=== PATIENT | male | born 1995 | race Two or more races ===

== ENCOUNTER 2018-06-30 10:08 | Inpatient (IN) | payer OTHER ==
[~2018-06-30] VITALS: Ht 170.2 cm; Wt 73.2 kg
[2018-06-30 16:35] LABS: BASOPHILS % (AUTO) 0.6 % (0.0-2.0); EOSINOPHILS % (AUTO) 2.1 % (0.0-3.0); HEMATOCRIT 38.2 % (42.0-52.0); HEMOGLOBIN 13.4 G/DL (14.2-18.0); LYMPHOCYTES % (AUTO) 46.8 % (20.0-45.0); MEAN CORPUSCULAR VOLUME 88 FL (80-99); MONOCYTES % (AUTO) 6.6 % (1.0-10.0); NEUTROPHILS % (AUTO) 43.9 % (45.0-75.0); PLATELET COUNT 290 K/UL (150-450); RED BLOOD COUNT 4.35 M/UL (4.70-6.10); RED CELL DISTRIBUTION WIDTH 11.3 % (11.6-14.8); WHITE BLOOD COUNT 6.3 K/UL (4.8-10.8)
--- NOTE | 2018-06-30 19:45 | NUR ---
NURSE NOTES: Pt lying in bed w/bed in lowest position and call light within reach. Pt A&Ox4 and in no apparent distress. Pt aware of diet orders and has no questions or concerns at this time. Will continue to monitor.
--- NOTE | 2018-06-30 19:53 | NUR ---
HAND-OFF: Report given to Jigar HULL.
--- NOTE | 2018-06-30 20:01 | NUR ---
NURSE NOTES: Pt received as a direct admit, verbalized understanding of diet orders. Able to verbalize past medical history. Stable condition no concerns verbalized.
--- NOTE | 2018-06-30 20:04 | History & Physical ---
History and Physical History & Physicial Full H&P dictated. 22 yo male electively admitted for participation in [employer] clinical trial [id number] S: Pt feels well, no complaints today O: VSS Afebrile HEENT: nc/at Lungs: clear Cor: reg, no murmurs Abd: soft, NT, BS+ Ext: no c/c/e Skin: no rash A: 1) Well controlled HIV infection 2) Participation in [id number] P: 1) Infuse IP in AM 2) Per protocol 3) continue sole outpt med: Symtuza, one tab daily. Jeff Valentin MD June 30, 2018 20:04
--- NOTE | 2018-07-01 02:45 | History and Physical Report ---
DATE OF ADMISSION: 06/30/2018 CHIEF COMPLAINT: The patient is electively admitted for participation in [employer] Clinical Trial, [id number]. HISTORY OF PRESENT ILLNESS: The patient is a 22-year-old man, diagnosed several years ago with HIV infection. He was started on Symtuza in 2017 and was continued on it since. His viral load is undetectable and he feels well. He is electively admitted for participation in this drug study. PAST MEDICAL HISTORY: He had the usual childhood diseases. He has not had any adult medical illnesses. He has had no opportunistic infections or malignancies. MEDICATIONS: Symtuza one tablet daily. ALLERGIES: None. FAMILY HISTORY: Noncontributory. 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 He was born in [place]. He is a single menon male. He states that he has not used illicit substances in at least 2 weeks and his drug screens as an outpatient have been negative. The patient smokes occasionally, but has not smoked cigarettes in the past several weeks. REVIEW OF SYSTEMS: No fever. No chills. No cough. No headache. No shortness of breath. No chest pain. No nausea, vomiting, or diarrhea. No dysuria or hematuria. PHYSICAL EXAMINATION: VITAL SIGNS: Included temperature of 97.8, heart rate of 85, blood pressure was 99/61, and his respiratory rate was 14. HEENT: Normocephalic, atraumatic. Pupils equal, round, and reactive. Oropharynx was without thrush or leukoplakia. NECK: Supple. There is no cervical or axillary adenopathy. LUNGS: Clear to auscultation. HEART: Had regular rhythm without murmurs or gallops. ABDOMEN: Soft and nontender. No hepatosplenomegaly. EXTREMITIES: Without cyanosis, clubbing, or edema. NEUROLOGIC: Grossly nonfocal for motor or sensory deficits. SKIN: Had no rashes. IMPRESSION: 1. Participation in [employer] Clinical Trial, [id number]. 2. HIV infection, well controlled. DISCUSSION: The patient is a very pleasant 22-year-old man, who is electively admitted for participation in a clinical trial of an investigational agent, [id number]. Our plan will be to manage him per protocol, anticipate dosing in the morning with close observation in the remainder of his hospital stay. The patient was afforded an opportunity again to ask questions. The patient verbalized being satisfied with his participation and wishes to continue. PLAN: Manage per protocol. Jeff Valentin M.D. DR: LIAM JOB#: [id number] CC: Jeff Valentin M.D.; [facility] [facility], [address]; [place] [address]; Fax#: [phone] [facility]
--- NOTE | 2018-07-01 07:40 | NUR ---
HAND-OFF: Report given to Malcom Mathew RN.
--- NOTE | 2018-07-01 07:45 | NUR ---
NURSE NOTES: Patient sitting in bed awake. No complain of pain or distress at this time. Skin intact and dry. Bed lowest position. Call light within reach. Will continue to monitor.
[2018-07-01 08:00] VITALS: BP 102/59
[2018-07-01] MEDS ORDERED: [UNRECOGNIZED DRUG - REMARK] IV ONE (08:15)
[2018-07-01 12:00] VITALS: BP 108/60
[2018-07-01] MEDS: SYMTUZA ORAL SCH (12:33)
--- NOTE | 2018-07-01 14:09 | NUR ---
[facility] S/W FRIDA ..SHE WILL HANDLE THIS ADMISSION.. P- [phone] F- [phone].....REVIEW/CLINICAL
--- NOTE | 2018-07-01 14:53 | NUR ---
CASE MANAGEMENT:REVIEW 22 YR OLD MALE HERE FOR PARTICIPATION IN [employer] CLINICAL TRIAL [id number]
--- NOTE | 2018-07-01 15:56 | General Progress Note ---
Progress Note Progress Note S: Pt doing well, tolerated infusion of IP this morning w/o observed AEs. No new complaints O: VSS. Afebrile HEENT: nc/at Neck: supple Lungs: clear a/p Cor: reg Abd: soft, NT Ext: no c/c/e Skin: no rash Labs Test 06/30/18 13:45 White Blood Count 6.3 K/UL (4.8-10.8) Red Blood Count 4.35 M/UL (4.70-6.10) Hemoglobin 13.4 G/DL (14.2-18.0) Hematocrit 38.2 % (42.0-52.0) Mean Corpuscular Volume 88 FL (80-99) Mean Corpuscular Hemoglobin 30.8 PG (27.0-31.0) Mean Corpuscular Hemoglobin Concent 35.1 G/DL (32.0-36.0) Red Cell Distribution Width 11.3 % (11.6-14.8) Platelet Count 290 K/UL (150-450) Mean Platelet Volume 5.1 FL (6.5-10.1) Neutrophils (%) (Auto) 43.9 % (45.0-75.0) Lymphocytes (%) (Auto) 46.8 % (20.0-45.0) Monocytes (%) (Auto) 6.6 % (1.0-10.0) Eosinophils (%) (Auto) 2.1 % (0.0-3.0) Basophils (%) (Auto) 0.6 % (0.0-2.0) A: 1) HIV, well controlled 2) Participation in [id number] clinical trial P: 1) monitor per protocol 2) will check local CBC in Jeff Aguila MD July 01, 2018 15:56
[2018-07-01 16:00] VITALS: BP 116/66
--- NOTE | 2018-07-01 19:30 | NUR ---
HAND-OFF: Report given to Henry HULL. Patient instable condition.
--- NOTE | 2018-07-01 19:31 | NUR ---
NURSE NOTES: Report taken from DELLA العراقي. Patient is awake and in bed, very fatigued, A&Ox4. Here for clinical trial. No signs of distress on room air. No complaints of pain. IV site c/d/i and patent, no fluids, patients infusion was done 07/01. bed in lowest position, call light within reach. VS only to be taken at 0225 per MD order.
--- NOTE | 2018-07-02 07:27 | NUR ---
HAND-OFF: Report given to DELLA Gray. Patient is asleep, VS stable. .
--- NOTE | 2018-07-02 08:01 | NUR ---
NURSE NOTES: Pt in bed no concerns at this time, partner is at bedside. Here for clinical trials under the care of Dr Valentin
[2018-07-02] MEDS: SYMTUZA ORAL SCH (09:23)
[2018-07-02 09:56] LABS: BASOPHILS % (AUTO) 0.5 % (0.0-2.0); EOSINOPHILS % (AUTO) 2.7 % (0.0-3.0); HEMATOCRIT 37.4 % (42.0-52.0); HEMOGLOBIN 12.9 G/DL (14.2-18.0); LYMPHOCYTES % (AUTO) 42.3 % (20.0-45.0); MEAN CORPUSCULAR VOLUME 93 FL (80-99); MONOCYTES % (AUTO) 7.9 % (1.0-10.0); NEUTROPHILS % (AUTO) 46.6 % (45.0-75.0); PLATELET COUNT 267 K/UL (150-450); RED BLOOD COUNT 4.03 M/UL (4.70-6.10); RED CELL DISTRIBUTION WIDTH 11.8 % (11.6-14.8); WHITE BLOOD COUNT 5.1 K/UL (4.8-10.8)
--- NOTE | 2018-07-02 11:52 | General Progress Note ---
Progress Note Progress Note S: Pt states he feels well, no new complaints O: VSS Afebrile HEENT: nc/at Neck: supple Lungs: clear a/ Cor: reg rate, rhythm. No murmurs, gallops Abd; soft, NT. No HSM Ext: no c/c/e Neuro: non-focal Skin: no rashes Labs Test 06/30/18 13:45 07/02/18 08:00 White Blood Count 6.3 K/UL (4.8-10.8) 5.1 K/UL (4.8-10.8) Red Blood Count 4.35 M/UL (4.70-6.10) 4.03 M/UL (4.70-6.10) Hemoglobin 13.4 G/DL (14.2-18.0) 12.9 G/DL (14.2-18.0) Hematocrit 38.2 % (42.0-52.0) 37.4 % (42.0-52.0) Mean Corpuscular Volume 88 FL (80-99) 93 FL (80-99) Mean Corpuscular Hemoglobin 30.8 PG (27.0-31.0) 32.0 PG (27.0-31.0) Mean Corpuscular Hemoglobin Concent 35.1 G/DL (32.0-36.0) 34.4 G/DL (32.0-36.0) Red Cell Distribution Width 11.3 % (11.6-14.8) 11.8 % (11.6-14.8) Platelet Count 290 K/UL (150-450) 267 K/UL (150-450) Mean Platelet Volume 5.1 FL (6.5-10.1) 5.7 FL (6.5-10.1) Neutrophils (%) (Auto) 43.9 % (45.0-75.0) 46.6 % (45.0-75.0) Lymphocytes (%) (Auto) 46.8 % (20.0-45.0) 42.3 % (20.0-45.0) Monocytes (%) (Auto) 6.6 % (1.0-10.0) 7.9 % (1.0-10.0) Eosinophils (%) (Auto) 2.1 % (0.0-3.0) 2.7 % (0.0-3.0) Basophils (%) (Auto) 0.6 % (0.0-2.0) 0.5 % (0.0-2.0) A: 1) HIV infection, well-controlled 2) Participation in [id number] clinical trial Pt doing well, no AEs observed as yet. P: 1) manage per protocol 2) anticipate discharge in AM if stable, with f/u in office next week. Jeff Valentin MD July 02, 2018 11:52
--- NOTE | 2018-07-02 16:00 | NUR ---
NURSE NOTES: Pt has no concerns frequent room rounds made. Able to verbalize known needs. Dr. Valentin here earlier in shift and seen pt. Current plan of care will be followed
--- NOTE | 2018-07-02 19:23 | NUR ---
NURSE NOTES: Dr Valentin called with report from Reyna that pt had developed a rash to forearms. Prosthetic Dentist entered room with oncoming nurse. Rash is visible, yet no elevations, denies itching. Dr Valentin gave instructions for area to be monitored closely, no further orders given. Per Dr. Valentin will be in early in the AM, On coming nurse Henry made aware of instructions. No further v/s need to be taken per Reyna.
--- NOTE | 2018-07-02 19:29 | NUR ---
HAND-OFF: Report given to Hudson HULL.
--- NOTE | 2018-07-02 19:31 | NUR ---
NURSE NOTES: Report taken from DELLA Gray. patient is awake and in bed, A&Ox4. here for clinical trial with Dr. Valentin. No signs of distress on room air. No complaints of pain. Patient recently noticed a red rash on bilateral forearms. Dr. Valentin was contacted and just would like to monitor area. IV site removed per trial instructions. Bed in lowest position, call light within reach.
[2018-07-02 20:00] VITALS: BP 110/61
[2018-07-02] MEDS ORDERED: Patient's Own Med ORAL (22:39)
--- NOTE | 2018-07-03 07:40 | NUR ---
NURSE NOTES: Report received from Henry HULL, rounds made. Patient sleeping in right lateral position, in bed. Arousable to name. No distress on RA, denies pain, SOB, or NV. No IV access. Plans for discharge home today. Call light in reach, bed in lowest position, will continue to monitor.
--- NOTE | 2018-07-03 07:55 | NUR ---
HAND-OFF: Report given to DELLA Gonzalez. Patient is awake and in bed. D/C instructions endorsed to RN to give to patient.
[2018-07-03] MEDS ORDERED: Pneumococcal Vaccine 25mcg/0.5ml IM ONE (08:30)
[2018-07-03 08:49] LABS: BASOPHILS % (AUTO) 0.5 % (0.0-2.0); EOSINOPHILS % (AUTO) 2.4 % (0.0-3.0); LYMPHOCYTES % (AUTO) 38.5 % (20.0-45.0); MEAN CORPUSCULAR VOLUME 91 FL (80-99); MONOCYTES % (AUTO) 8.1 % (1.0-10.0); NEUTROPHILS % (AUTO) 50.5 % (45.0-75.0); PLATELET COUNT 293 K/UL (150-450); RED BLOOD COUNT 4.16 M/UL (4.70-6.10); WHITE BLOOD COUNT 5.8 K/UL (4.8-10.8)
[2018-07-03] MEDS: SYMTUZA ORAL SCH (08:55)
--- NOTE | 2018-07-03 09:00 | NUR ---
NURSE NOTES: Discharge instructions reviewed with patient, verbalized understanding. Home medication picked up from pharmacy. All belongings, discharge instructions and home medication given to patient. Patient ambulated down to lobby with RN. Patient lives very close to the hospital, will walk home. Discharged home at 0900 in stable condition.
--- NOTE | 2018-07-05 03:45 | Discharge Summary ---
DATE OF ADMISSION: 06/30/2018 DATE OF DISCHARGE: 07/03/2018 DISCHARGE DIAGNOSES: 1. Participation in [employer] clinical trial [id number]. 2. Well-controlled human immunodeficiency virus infection. 3. Transient rash. HISTORY OF PRESENT ILLNESS AND HOSPITAL COURSE: The patient is a 22-year-old man, who was admitted electively on 06/30/2018 for participation in the above clinical trial. The patient received an infusion in the morning of the second hospital day and tolerated well. However, about 24 hours later, he developed transient maculopapular rash in his forearms, which were mildly pruritic, but which did not require any symptomologic treatment. The rash spontaneously resolved and was gone at the time of discharge. The patient tolerated the infusion well otherwise. He is discharged in good condition to home. He will be followed up in my office next week. This was the first of 5 anticipated biweekly infusions. DISCHARGE MEDICATIONS: Symtuza 1 tablet daily. Jeff Valentin M.D. DR: LIAM JOB#: [id number] CC: Jeff Valentin M.D.; [address] [place] [address], [address]; [place] [address]; Fax#: [phone]
== END 2018-07-03 09:00 | disposition home or self-care (01) | DRG 951 ==
LOC: 3E 15:56
DX: Z00.6 Encounter for examination for normal comparison and control in clinical research program (principal); Z21 Asymptomatic human immunodeficiency virus [HIV] infection status; R21 Rash and other nonspecific skin eruption
CPT/HCPCS: 36415; 85025; 90732

== ENCOUNTER 2018-07-28 10:15 | Inpatient (IN) | payer OTHER ==
[~2018-07-28] VITALS: Ht 167.6 cm; Wt 79.0 kg
[~2018-07-28 10:15] MED LIST: Patient's Own Med ORAL
[2018-07-28 15:12] LABS: BASOPHILS % (AUTO) 0.4 % (0.0-2.0); EOSINOPHILS % (AUTO) 0.2 % (0.0-3.0); HEMOGLOBIN 12.7 G/DL (14.2-18.0); LYMPHOCYTES % (AUTO) 30.2 % (20.0-45.0); MEAN CORPUSCULAR VOLUME 88 FL (80-99); MONOCYTES % (AUTO) 10.4 % (1.0-10.0); NEUTROPHILS % (AUTO) 58.7 % (45.0-75.0); PLATELET COUNT 336 K/UL (150-450); RED BLOOD COUNT 4.31 M/UL (4.70-6.10); RED CELL DISTRIBUTION WIDTH 11.4 % (11.6-14.8); WHITE BLOOD COUNT 5.8 K/UL (4.8-10.8)
--- NOTE | 2018-07-28 15:16 | NUR ---
NURSE NOTES: Pt arrived from home. With his belonging medication will be taken to pharmacy. Aware of food restrictions. Here for clinical trial under the direction of Dr. Valentin
--- NOTE | 2018-07-28 15:36 | History & Physical ---
History and Physical History & Physicial Full note dictated #[id number] 22 yo male electively admitted for 3rd of 5 biweekly infusions of IP as part of [id number] clinical trial. Since discharge last week he has done well. PE: wnwd male NAD HEENT: nc/at Lungs: clear Cor: reg Abd: soft Ext: no c/c/e Skin: no rashes Labs pending A: 1) HIV infection, well-controlled. 2) participation in clinical trial P: 1) manage per protocol 2) encourage adherence 3) anticipate infusion of IP in AM 6/11. All questions offered were addressed, pt wishes to continue his participation. Jeff Valentin MD Jul 28, 2018 15:36
--- NOTE | 2018-07-28 16:41 | NUR ---
NURSE NOTES: Dr Valentin called to ensure that pt understands diet restrictions. Pt informed and understands restrictions
--- NOTE | 2018-07-28 18:08 | NUR ---
NURSE NOTES: Pt is able to verbalize known needs . Here for clinical trials snack provided on admission. Provided with dinner tray. Inventory signed and logged in .
--- NOTE | 2018-07-28 19:33 | NUR ---
HAND-OFF: Report given to Report given to Pankaj HULL made awre of diet restrictions.
--- NOTE | 2018-07-28 19:52 | NUR ---
NURSE NOTES: Patient ambulating inside room. No pain or any discomfort. Needs attended. Call light within reach. In stable condition.
[2018-07-29 08:00] VITALS: BP 103/58
--- NOTE | 2018-07-29 08:00 | NUR ---
NURSE NOTES: Received report from Pankaj Boyd pt a/a/o x4 laying in bed with no signs of distress or other issues at this time. pt started his clinical trial infusion by Dr. Valentin. IV on the right AC and left AC gauge#18. call light within reach, bed in lowest position. side rales up x2. I will f/u as needed.
[2018-07-29] MEDS ORDERED: [UNRECOGNIZED DRUG - REMARK] IV ONE (08:15)
--- NOTE | 2018-07-29 09:42 | NUR ---
CASE MANAGEMENT: INITIAL REVIEW PATIENT IS IN A CLINICAL TRIAL "IP as part of [id number] clinical trial."
[2018-07-29] MEDS: SYMTUZA ORAL SCH (12:02)
[2018-07-29] MEDS: [UNRECOGNIZED DRUG - OTHER] ORAL SCH (12:02)
--- NOTE | 2018-07-29 16:46 | General Progress Note ---
Progress Note Progress Note S: Pt states he feels well, tolerated infusion of IP this morning w/0 any observed adverse events. O: VSS. Afebrile HEENT: nc/at Neck: supple Lungs: clear a/p Cor: reg no murmur Abd: soft, NT Extremities: no c/c/e Skin: no rashes Labs Test 07/28/18 15:00 White Blood Count 5.8 K/UL (4.8-10.8) Red Blood Count 4.31 M/UL (4.70-6.10) Hemoglobin 12.7 G/DL (14.2-18.0) Hematocrit 38.0 % (42.0-52.0) Mean Corpuscular Volume 88 FL (80-99) Mean Corpuscular Hemoglobin 29.5 PG (27.0-31.0) Mean Corpuscular Hemoglobin Concent 33.5 G/DL (32.0-36.0) Red Cell Distribution Width 11.4 % (11.6-14.8) Platelet Count 336 K/UL (150-450) Mean Platelet Volume 4.9 FL (6.5-10.1) Neutrophils (%) (Auto) 58.7 % (45.0-75.0) Lymphocytes (%) (Auto) 30.2 % (20.0-45.0) Monocytes (%) (Auto) 10.4 % (1.0-10.0) Eosinophils (%) (Auto) 0.2 % (0.0-3.0) Basophils (%) (Auto) 0.4 % (0.0-2.0) A: 1) participation in [id number] clinical trial. 2) HIV infection, well-controlled. P: 1) continue to manage per protocol 2) observe through morning in hospital; anticipate d/c shortly after that Jeff Valentin MD Jul 29, 2018 16:46
--- NOTE | 2018-07-29 19:53 | NUR ---
HAND-OFF: Report given to Delilah HULL, pt in stable condition.
--- NOTE | 2018-07-29 23:00 | NUR ---
NURSE NOTES: No distress noted, patient awake, alert.
[2018-07-30 01:50] VITALS: BP 99/62
--- NOTE | 2018-07-30 07:40 | NUR ---
HAND-OFF: Report given to DELLA Gray.
--- NOTE | 2018-07-30 08:12 | NUR ---
NURSE NOTES: Pt awake eating breakfast . Blood specimen taken to lab. Current orders will be followed
[2018-07-30 08:15] LABS: BASOPHILS % (AUTO) 0.7 % (0.0-2.0); EOSINOPHILS % (AUTO) 1.2 % (0.0-3.0); HEMATOCRIT 33.8 % (42.0-52.0); HEMOGLOBIN 11.4 G/DL (14.2-18.0); LYMPHOCYTES % (AUTO) 47.4 % (20.0-45.0); MEAN CORPUSCULAR VOLUME 91 FL (80-99); MONOCYTES % (AUTO) 10.4 % (1.0-10.0); NEUTROPHILS % (AUTO) 40.2 % (45.0-75.0); PLATELET COUNT 278 K/UL (150-450); RED BLOOD COUNT 3.71 M/UL (4.70-6.10); RED CELL DISTRIBUTION WIDTH 11.7 % (11.6-14.8); WHITE BLOOD COUNT 4.9 K/UL (4.8-10.8)
[2018-07-30] MEDS: [UNRECOGNIZED DRUG - OTHER] ORAL SCH (08:48)
[2018-07-30] MEDS: SYMTUZA ORAL SCH (08:48)
--- NOTE | 2018-07-30 09:07 | NUR ---
NURSE NOTES: Pt able to verbalize known needs , personal medication given, requesting to be left alone so he can rest.
--- NOTE | 2018-07-30 12:11 | General Progress Note ---
Progress Note Progress Note S: Patient doing well, no new compliants or AEs noted since administration of IP yesterday. O: VSS. Afebrile HEENT: nc/at Lungs: clear Cor: reg Abd: soft, NT Skin: no rashes Labs Test 07/28/18 15:00 07/30/18 08:00 White Blood Count 5.8 K/UL (4.8-10.8) 4.9 K/UL (4.8-10.8) Red Blood Count 4.31 M/UL (4.70-6.10) 3.71 M/UL (4.70-6.10) Hemoglobin 12.7 G/DL (14.2-18.0) 11.4 G/DL (14.2-18.0) Hematocrit 38.0 % (42.0-52.0) 33.8 % (42.0-52.0) Mean Corpuscular Volume 88 FL (80-99) 91 FL (80-99) Mean Corpuscular Hemoglobin 29.5 PG (27.0-31.0) 30.7 PG (27.0-31.0) Mean Corpuscular Hemoglobin Concent 33.5 G/DL (32.0-36.0) 33.7 G/DL (32.0-36.0) Red Cell Distribution Width 11.4 % (11.6-14.8) 11.7 % (11.6-14.8) Platelet Count 336 K/UL (150-450) 278 K/UL (150-450) Mean Platelet Volume 4.9 FL (6.5-10.1) 5.8 FL (6.5-10.1) Neutrophils (%) (Auto) 58.7 % (45.0-75.0) 40.2 % (45.0-75.0) Lymphocytes (%) (Auto) 30.2 % (20.0-45.0) 47.4 % (20.0-45.0) Monocytes (%) (Auto) 10.4 % (1.0-10.0) 10.4 % (1.0-10.0) Eosinophils (%) (Auto) 0.2 % (0.0-3.0) 1.2 % (0.0-3.0) Basophils (%) (Auto) 0.4 % (0.0-2.0) 0.7 % (0.0-2.0) A: 1) Participation in [id number] clinical trial 2) Well-controlled HIV infection P: 1) Continue to manage per protocol 2) Anticipate discharge tomorrow morning if stable. Jeff Valentin MD Jul 30, 2018 12:11
--- NOTE | 2018-07-30 16:24 | NUR ---
NURSE NOTES: Did not verbalize any concerns at this time call light is in reach
--- NOTE | 2018-07-30 19:30 | NUR ---
NURSE NOTES: Received report & pt from DELLA Gray. Pt lying in bed, a&ox4, in room air. No s/s of acute distress & no c/o pain at this time. No IV access noted. No V/S tonight. Expected to go home 07/31 @ 0900 per pt. Bed in lowest position, call light within reach. Will continue to monitor.
--- NOTE | 2018-07-30 20:02 | NUR ---
NURSE NOTES: Pt able to verbalize known needs. Breathing room air. Here for clinical trial for under the direction of Dr. Valentin
[2018-07-30] MEDS ORDERED: Patient's Own Med ORAL (20:25)
--- NOTE | 2018-07-31 04:30 | NUR ---
HAND-OFF: Report given to DELLA Figueroa re continuity of care. Rounds done. Pt in stable condition.
--- NOTE | 2018-07-31 04:31 | NUR ---
NURSE NOTES: Report taken from DELLA Ramírez. Patient is asleep in bed, easily arousable by name, A&Ox4. No signs of distress on room air. No complaints of pain. Here for clinical trial. D/C plan for this AM, after labs are collected.
--- NOTE | 2018-07-31 07:37 | NUR ---
HAND-OFF: Report given to DELLA Galarza. Patient is awake and aware of D/C today, VS stable. .
--- NOTE | 2018-07-31 08:07 | NUR ---
NURSE NOTES: Received report from Henry HULL. Patient is awake alert and oriented x4, no acute distress noted. Discharge packet completed by overnight stocker nurse, will discharge today per order. Patient in agreement with plan of care. Side rails upx2, bed low and locked, call light in reach. Will continue to monitor.
[2018-07-31 08:39] LABS: BASOPHILS % (AUTO) 0.6 % (0.0-2.0); EOSINOPHILS % (AUTO) 1.5 % (0.0-3.0); HEMATOCRIT 36.1 % (42.0-52.0); LYMPHOCYTES % (AUTO) 48.5 % (20.0-45.0); MEAN CORPUSCULAR VOLUME 91 FL (80-99); MONOCYTES % (AUTO) 9.6 % (1.0-10.0); NEUTROPHILS % (AUTO) 39.8 % (45.0-75.0); PLATELET COUNT 304 K/UL (150-450); RED BLOOD COUNT 3.96 M/UL (4.70-6.10); RED CELL DISTRIBUTION WIDTH 11.6 % (11.6-14.8); WHITE BLOOD COUNT 5.3 K/UL (4.8-10.8)
--- NOTE | 2018-07-31 09:00 | NUR ---
NURSE NOTES: Patient discharged. No acute distress noted, all belongings and Rx from pharmacy given to patient. Discharge instructions reviewed with patient and patient reports understanding of provided education. Patient had no IV access. Ambulatory with steady gait. Escorted off unit to private vehicle.
--- NOTE | 2018-07-31 22:30 | Discharge Summary ---
DATE OF ADMISSION: 07/28/2018 DATE OF DISCHARGE: 07/31/2018 DISCHARGE DIAGNOSES: 1. Human immunodeficiency virus infection, well controlled. 2. Participation in [email or web address] clinical trial [id number]. HISTORY OF PRESENT ILLNESS/HOSPITAL COURSE: The patient is a 23-year-old man, who was electively admitted on 07/28/2018 for continued participation in the above clinical trial. He received the third of a projected 5 biweekly dose of investigational product on the second hospital day. He tolerated this well. There were no subsequent adverse events noted clinically or in his laboratory studies. The patient was discharged to home in stable condition. DISCHARGE MEDICATIONS: Includes Symtuza 1 tablet once a day. FOLLOWUP: Follow-up will be in the office next week. Jeff Valentin M.D. DR: LIAM JOB#: [id number] CC:
== END 2018-07-31 08:52 | disposition home or self-care (01) | DRG 951 ==
LOC: 3E 14:29
DX: Z00.6 Encounter for examination for normal comparison and control in clinical research program (principal); B20 Human immunodeficiency virus [HIV] disease
CPT/HCPCS: 36415; 85025

== ENCOUNTER 2018-08-11 11:11 | Inpatient (IN) | payer OTHER ==
[~2018-08-11] VITALS: Ht 167.6 cm; Wt 79.0 kg
--- NOTE | 2018-08-11 15:30 | NUR ---
NURSE NOTES: Patient was admitted to [facility] in stable condition. Unit orientation was given. Bed in lowest position, call light within reach.
[2018-08-11 15:46] LABS: BASOPHILS % (AUTO) 0.5 % (0.0-2.0); EOSINOPHILS % (AUTO) 0.8 % (0.0-3.0); HEMATOCRIT 35.4 % (42.0-52.0); HEMOGLOBIN 12.7 G/DL (14.2-18.0); LYMPHOCYTES % (AUTO) 31.2 % (20.0-45.0); MEAN CORPUSCULAR VOLUME 84 FL (80-99); MONOCYTES % (AUTO) 8.6 % (1.0-10.0); NEUTROPHILS % (AUTO) 58.9 % (45.0-75.0); PLATELET COUNT 305 K/UL (150-450); RED BLOOD COUNT 4.19 M/UL (4.70-6.10); WHITE BLOOD COUNT 5.4 K/UL (4.8-10.8)
--- NOTE | 2018-08-11 17:06 | History & Physical ---
History and Physical History & Physicial Full H&P dictated #[id number]. 23 yo male electively admitted for continued participation in [employer] clinical trial [id number]. He has done well since the last infusion two weeks ago and has no new complaints. O: T 98.0 R 16 BP 118/70 P 109 HEENT: nc/at Lungs: clear Cor: reg, no murmur Abd: soft, nt Ext: no c/c/e Neuro: non-focal Skin: no rashes A: 1) HIV, well-controlled 2) Participation in [id number] P: 1) manage per protocol -this will be the fourth of a planned 5 biweekly infusions of IP 2) plan on infusing tomorrow morning with observation over the next two nights in house Jeff Valentin MD Aug 11, 2018 17:06
--- NOTE | 2018-08-11 19:15 | History and Physical Report ---
DATE OF ADMISSION: 08/11/2018 CHIEF COMPLAINT: The patient is electively admitted for continued participation in [facility] Clinical Trial [id number]. HISTORY OF PRESENT ILLNESS: The patient is a 23-year-old man followed by our practice for HIV infection, which is well controlled. He was started on Symtuza in 2017 and has had undetectable viral load since with normal CD4 counts. This will be the fourth of planned 5 biweekly administration of investigational product, [id number] (or placebo). PAST MEDICAL HISTORY: He had the usual childhood diseases. He has no adult medical illnesses. The patient had his third upper molars removed last week, but is doing well postoperatively. FAMILY HISTORY: Noncontributory. 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 He was born in [place]. He smokes occasionally. There is a history of substance abuse for which he is seeking treatment. He states that he has not used recently. MEDICATIONS: As an outpatient include Symtuza one tablet once a day. ALLERGIES: No known drug allergies. REVIEW OF SYSTEMS: Denies fevers, chills, night sweats. No cough. No shortness of breath. No chest pain. No nausea, vomiting, or diarrhea. No dysuria or hematuria. No rashes. PHYSICAL EXAMINATION: GENERAL: Revealed a well-nourished, well-developed male in no acute distress. He is alert and oriented x4. VITAL SIGNS: Pending. HEENT: Normocephalic, atraumatic. Pupils equal. Oropharynx was without thrush or leukoplakia. NECK: Supple. There is no cervical or axillary adenopathy noted. LUNGS: Clear to auscultation. HEART: Regular rhythm without murmurs or gallops. ABDOMEN: Soft, nontender. No hepatosplenomegaly was noted. EXTREMITIES: Without cyanosis, clubbing, or edema. SKIN: No rash. NEUROLOGIC: Grossly nonfocal for any motor or sensory deficits. LABORATORY DATA: Pending. IMPRESSION: 1. Elective admission for participation in [facility] Clinical Trial [id number]. 2. HIV infection, which is well controlled. 3. History of substance use. DISCUSSION: The patient is a very pleasant 23-year-old man who wishes to continue to participate in the above clinical trial. He will receive his fourth of planned 5 infusions tomorrow morning. PLAN: Manage per protocol. Jeff Valentin M.D. DR: Abdulkadir JOB#: [id number] CC: Jeff Valentin M.D.; [address] [place] [address], [address]; [place] [address]; Fax#: [phone] [facility]
--- NOTE | 2018-08-11 19:26 | NUR ---
HAND-OFF: Report given to DELLA Figueroa.
--- NOTE | 2018-08-11 19:27 | NUR ---
NURSE NOTES: Report taken from DELLA Marroquin. Patient is in bed asleep. Here for clinical trial. A&Ox4. No signs of distress on room air. No complaints of pain. Skin intact. No IV access currently, trial group will place before infusion 08/12. orders for diet placed, discussed diet schedule with patient. Bed in lowest position, call light within reach.
--- NOTE | 2018-08-12 07:37 | NUR ---
HAND-OFF: Report given to DELLA Mehta. Patient awake and in bed. Clinical trial staff present for infusion.
--- NOTE | 2018-08-12 07:40 | NUR ---
NURSE NOTES: AWAKE/ALERT. NO C/O PAIN. IN NO APPARENT DISTRESS.
[2018-08-12] MEDS ORDERED: [UNRECOGNIZED DRUG - REMARK] IV ONE (08:00)
--- NOTE | 2018-08-12 11:06 | General Progress Note ---
Progress Note Progress Note S: Pt doing well, no new complaints. Tolerated infusion of IP this morning without any AEs noted. O: VSS. Afebrile HEENT: nc/at Lungs: clear Cor: reg Abd: soft, NT Ext: no c/c/e Neuro: non-focal Skin: no rashes Labs Test 08/11/18 15:30 White Blood Count 5.4 K/UL (4.8-10.8) Red Blood Count 4.19 M/UL (4.70-6.10) Hemoglobin 12.7 G/DL (14.2-18.0) Hematocrit 35.4 % (42.0-52.0) Mean Corpuscular Volume 84 FL (80-99) Mean Corpuscular Hemoglobin 30.2 PG (27.0-31.0) Mean Corpuscular Hemoglobin Concent 35.8 G/DL (32.0-36.0) Red Cell Distribution Width 11.0 % (11.6-14.8) Platelet Count 305 K/UL (150-450) Mean Platelet Volume 4.8 FL (6.5-10.1) Neutrophils (%) (Auto) 58.9 % (45.0-75.0) Lymphocytes (%) (Auto) 31.2 % (20.0-45.0) Monocytes (%) (Auto) 8.6 % (1.0-10.0) Eosinophils (%) (Auto) 0.8 % (0.0-3.0) Basophils (%) (Auto) 0.5 % (0.0-2.0) A: 1) HIV infection, well controlled 2) clinical trial participant, doing well after IP infusion this morning. P: 1) Continue to manage per [id number] protocol 2) observe 2 more nights in [place] Jeff Valentin MD Aug 12, 2018 11:06
--- NOTE | 2018-08-12 11:17 | NUR ---
*-* NO INSURANCE INFORMATION IN THE BAR UNABLE TO SEND CLINICALS OR REVIEWS *-*
--- NOTE | 2018-08-12 12:14 | NUR ---
CASE MANAGEMENT:REVIEW 23YR OLD MALE HERE FOR [place] CLINICAL TRAIL
[2018-08-12] MEDS: SYMTUZA ORAL SCH (12:21)
[2018-08-12] MEDS: [UNRECOGNIZED DRUG - OTHER] ORAL SCH (12:21)
--- NOTE | 2018-08-12 19:04 | NUR ---
NURSE NOTES: resting in bed. in no apparent distress.
--- NOTE | 2018-08-12 19:33 | NUR ---
HAND-OFF: Report given to Amie MARTIN RN.
--- NOTE | 2018-08-12 19:35 | NUR ---
NURSE NOTES: Report taken from DELLA Mehta. patient is awake and in bed, family at bedside. A&Ox4. No signs of distress on room air. No complaints of pain. patient is here for clinical trial. No VS taken until 08/13 per MD order. IV c/d/i. No skin issues. Discussed patient on diet order for the night, returned understanding. Bed in lowest position, call light within reach.
--- NOTE | 2018-08-13 07:37 | NUR ---
HAND-OFF: Report given to DELLA العراقي.
--- NOTE | 2018-08-13 07:40 | NUR ---
NURSE NOTES: Patient lying in bed awake. No complain of pain or distress. Skin intact and dry. Bed lowest position. Call light within reach. Will continue to monitor.
[2018-08-13 08:00] VITALS: BP 123/58
[2018-08-13 08:43] LABS: BASOPHILS % (AUTO) 0.6 % (0.0-2.0); EOSINOPHILS % (AUTO) 1.6 % (0.0-3.0); HEMATOCRIT 34.5 % (42.0-52.0); HEMOGLOBIN 11.9 G/DL (14.2-18.0); LYMPHOCYTES % (AUTO) 43.7 % (20.0-45.0); MEAN CORPUSCULAR VOLUME 89 FL (80-99); MONOCYTES % (AUTO) 8.5 % (1.0-10.0); NEUTROPHILS % (AUTO) 45.7 % (45.0-75.0); PLATELET COUNT 277 K/UL (150-450); RED BLOOD COUNT 3.86 M/UL (4.70-6.10); RED CELL DISTRIBUTION WIDTH 11.8 % (11.6-14.8); WHITE BLOOD COUNT 4.7 K/UL (4.8-10.8)
[2018-08-13] MEDS: SYMTUZA ORAL SCH (08:43)
[2018-08-13] MEDS: [UNRECOGNIZED DRUG - OTHER] ORAL SCH (08:43)
--- NOTE | 2018-08-13 19:14 | NUR ---
HAND-OFF: Report given to Desiree HULL. Patient in stable condition.
--- NOTE | 2018-08-13 19:15 | NUR ---
NURSE NOTES: Received report & pt from Malcom Mathew RN. Pt lying in bed, a&ox4, in room air. No s/s of acute distress & no c/o pain at this time. No IV access noted. Skin intact. Bed in lowest position, call light within reach. Will continue to monitor.
--- NOTE | 2018-08-13 21:07 | General Progress Note ---
Progress Note Progress Note S: Patient doing well, no new complaints. O: VSS. Afebrile. HEENT: nc/at Neck: supple Lungs: clear to a/ Cor: reg Abd: soft, NT Ext: no c/c/e Skin: no rashes Labs Test 08/11/18 15:30 08/13/18 07:39 White Blood Count 5.4 K/UL (4.8-10.8) 4.7 K/UL (4.8-10.8) Red Blood Count 4.19 M/UL (4.70-6.10) 3.86 M/UL (4.70-6.10) Hemoglobin 12.7 G/DL (14.2-18.0) 11.9 G/DL (14.2-18.0) Hematocrit 35.4 % (42.0-52.0) 34.5 % (42.0-52.0) Mean Corpuscular Volume 84 FL (80-99) 89 FL (80-99) Mean Corpuscular Hemoglobin 30.2 PG (27.0-31.0) 31.0 PG (27.0-31.0) Mean Corpuscular Hemoglobin Concent 35.8 G/DL (32.0-36.0) 34.6 G/DL (32.0-36.0) Red Cell Distribution Width 11.0 % (11.6-14.8) 11.8 % (11.6-14.8) Platelet Count 305 K/UL (150-450) 277 K/UL (150-450) Mean Platelet Volume 4.8 FL (6.5-10.1) 5.8 FL (6.5-10.1) Neutrophils (%) (Auto) 58.9 % (45.0-75.0) 45.7 % (45.0-75.0) Lymphocytes (%) (Auto) 31.2 % (20.0-45.0) 43.7 % (20.0-45.0) Monocytes (%) (Auto) 8.6 % (1.0-10.0) 8.5 % (1.0-10.0) Eosinophils (%) (Auto) 0.8 % (0.0-3.0) 1.6 % (0.0-3.0) Basophils (%) (Auto) 0.5 % (0.0-2.0) 0.6 % (0.0-2.0) A: 1) HIV infection, well controlled 2) participation in [id number] clinical trial. P: 1) continue to observe per protocol 2) anticipate discharge in AM if stable, with follow up in the office next week. Jeff Valentin MD Aug 13, 2018 21:07
[2018-08-13] MEDS ORDERED: Patient's Own Med ORAL (21:09)
--- NOTE | 2018-08-14 07:15 | NUR ---
NURSE NOTES: Report received from Desiree RN, rounds made. Patient sleeping in left lateral position in bed. No distress on RA. Call light in reach, bed in lowest position, will continue to monitor.
--- NOTE | 2018-08-14 07:30 | NUR ---
HAND-OFF: Report given to DELLA Gonzalez. Pt in stable condition. Rounds done.
[2018-08-14 08:39] LABS: BASOPHILS % (AUTO) 0.9 % (0.0-2.0); EOSINOPHILS % (AUTO) 1.6 % (0.0-3.0); HEMATOCRIT 36.2 % (42.0-52.0); LYMPHOCYTES % (AUTO) 44.7 % (20.0-45.0); MEAN CORPUSCULAR VOLUME 90 FL (80-99); MONOCYTES % (AUTO) 10.3 % (1.0-10.0); NEUTROPHILS % (AUTO) 42.5 % (45.0-75.0); PLATELET COUNT 293 K/UL (150-450); RED BLOOD COUNT 4.03 M/UL (4.70-6.10); RED CELL DISTRIBUTION WIDTH 11.8 % (11.6-14.8); WHITE BLOOD COUNT 4.6 K/UL (4.8-10.8)
[2018-08-14] MEDS: SYMTUZA ORAL SCH (09:13)
[2018-08-14] MEDS: [UNRECOGNIZED DRUG - OTHER] ORAL SCH (09:13)
[2018-08-14] MEDS ORDERED: NS 275ml ONE (09:44)
[2018-08-14] MEDS ORDERED: Tubing IV Secondary IV ONE (09:44)
--- NOTE | 2018-08-14 09:45 | NUR ---
NURSE NOTES: Discharge instructions reviewed with patient, verbalized understanding. No IV. Home medication slip returned to pharmacy to [facility] patient's home medications, bottle empty, medications completed, patient does not want empty bottle. All belongings and discharge papers given to patient. Patient ambulated down to [facility] with RN, in stable condition. Discharged home at 0945.
--- NOTE | 2018-08-15 02:30 | Discharge Summary ---
DATE OF ADMISSION: 08/11/2018 DATE OF DISCHARGE: 08/14/2018 DISCHARGE DIAGNOSES: 1. Human immunodeficiency virus infection. 2. Participation in [employer] clinical trial [id number]. HISTORY OF PRESENT ILLNESS AND HOSPITAL COURSE: The patient is a 23-year-old man, who has volunteered to participate in the above clinical trial. He received the fourth of 5 planned biweekly infusions of investigational product. He tolerated the infusion on the second hospital day well with no observed adverse events. On laboratory monitoring, he had no significant abnormalities. The patient is discharged in good condition to home. The patient will be seen in my office next week for further follow-up. DISCHARGE MEDICATIONS: Symtuza 1 tablet once a day. Jeff Valentin M.D. DR: LIAM JOB#: [id number] CC:
== END 2018-08-14 09:45 | disposition home or self-care (01) | DRG 951 ==
LOC: 3E 15:26
DX: Z00.6 Encounter for examination for normal comparison and control in clinical research program (principal); B20 Human immunodeficiency virus [HIV] disease
CPT/HCPCS: 36415; 85025

== ENCOUNTER 2018-08-25 15:40 | Inpatient (IN) | payer OTHER ==
[~2018-08-25] VITALS: Ht 165.1 cm; Wt 78.5 kg
--- NOTE | 2018-08-25 12:48 | General Progress Note ---
Progress Note Progress Note Full H&P dictated #[id number]. 23 yo with well-controlled HIV infection, now electively admitted for 5th of 5 biweekly infusions of IP per [employer] clinical trial [id number]. He has tolerated the prior infusions well. PE: unchanged from prior exams Lab: normal except for chronic mild normocytic anemia A: 1) HIV, on Symtuza 2) Participation in clinical trial. Pt wishes to continue 3) mild anemia 4) h/o amphetamine use P: 1) manage per protocol: will infuse in AM Jeff Valentin MD Aug 25, 2018 12:48
--- NOTE | 2018-08-25 16:00 | NUR ---
NURSE NOTES: Patient came to unit by ambulation in stable condition. Alert and oriented x4. No complain of pain or distress at this time. Skin intact and dry. Belonging checked with patient. Bed lowest position. Call light within reach. Will continue to monitor.
[2018-08-25 16:45] LABS: BASOPHILS % (AUTO) 0.2 % (0.0-2.0); EOSINOPHILS % (AUTO) 0.7 % (0.0-3.0); HEMATOCRIT 36.8 % (42.0-52.0); HEMOGLOBIN 12.2 G/DL (14.2-18.0); LYMPHOCYTES % (AUTO) 30.5 % (20.0-45.0); MEAN CORPUSCULAR VOLUME 90 FL (80-99); MONOCYTES % (AUTO) 6.6 % (1.0-10.0); PLATELET COUNT 348 K/UL (150-450); RED BLOOD COUNT 4.08 M/UL (4.70-6.10); RED CELL DISTRIBUTION WIDTH 11.2 % (11.6-14.8); WHITE BLOOD COUNT 5.2 K/UL (4.8-10.8)
--- NOTE | 2018-08-25 17:15 | History and Physical Report ---
DATE OF ADMISSION: 08/25/2018 CHIEF COMPLAINT: The patient is electively admitted for continued participation in [employer] clinical trial [id number]. HISTORY OF PRESENT ILLNESS: The patient is a 23-year-old man followed in our clinic for HIV infection. He was started on Symtuza in 2017 and has had undetectable viral load since. He is electively admitted for fifth of a planned 5 biweekly infusions of investigational product. He has tolerated the previous 4 doses without any observed adverse events. PAST MEDICAL HISTORY: The patient had the usual childhood diseases. Denies any other adult medical illnesses other than his HIV infection and he has had no opportunistic infections or malignancies. ALLERGIES: None. MEDICATIONS: The patient takes Symtuza one tablet daily. FAMILY HISTORY: Noncontributory. 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 He was born in [place]. He is a single [place] man. He has a history of amphetamine use. REVIEW OF SYSTEMS: No fevers. No cough. No chills. No shortness of breath. No nausea, vomiting, or diarrhea. No dysuria. No hematuria. No diarrhea. PHYSICAL EXAMINATION: GENERAL: Revealed a well-nourished, well-developed male in no acute distress. VITAL SIGNS: Pending. HEENT: Normocephalic and atraumatic. Pupils equal, round, and reactive. Oropharynx was without thrush. NECK: Supple. No cervical or axillary adenopathy. LUNGS: Clear to auscultation. HEART: Regular rhythm without murmurs or gallops. ABDOMEN: Soft and nontender. No hepatosplenomegaly. EXTREMITIES: Without cyanosis, clubbing, or edema. SKIN: Without rashes. NEUROLOGIC: Grossly nonfocal. LABORATORY STUDIES: Pending. The patient has had mild anemia noted. His platelet count is normal. IMPRESSION: 1. HIV infection, well controlled. 2. Participation in Clinical Trial [id number]. PLAN: 1. Per protocol. 2. Plan on infusion tomorrow morning at 8 o'clock. 3. All questions offered by the patient were addressed and he wishes to proceed. Jeff Valentin M.D. DR: Kurt JOB#: [id number] CC: Jeff Valentin M.D.; [address] [place] [address]; [place] [address]; Fax#: [phone]
--- NOTE | 2018-08-25 19:28 | NUR ---
HAND-OFF: Report given to Pankaj HULL. Patient in stable condition.
--- NOTE | 2018-08-25 21:00 | NUR ---
NURSE NOTES: Patient in bed awake and oriented. VSS. No SOB noted. No pain. Needs attended. Call light within reach. In stable condition.
--- NOTE | 2018-08-26 07:30 | NUR ---
NURSE NOTES: Patient lying in bed awake. No complain of pain or distress at this time. Skin intact and dry. Bed lowest position. Call light within reach. Will continue to monitor.
[2018-08-26 08:00] VITALS: BP 107/67
[2018-08-26] MEDS ORDERED: [UNRECOGNIZED DRUG - REMARK] IV ONE (08:00)
[2018-08-26] MEDS: SYMTUZA ORAL SCH (12:10)
--- NOTE | 2018-08-26 18:26 | General Progress Note ---
Progress Note Progress Note S: Pt tolerated infusion of IP well this morning with no AEs noted. O: VSS. Afebrile. HEENT: nc/at Neck: supple Lungs: clear Cor: reg, no murmurs Abd: soft, NT Ext: no c/c/e Skin: no rashes Labs Test 08/25/18 15:50 White Blood Count 5.2 K/UL (4.8-10.8) Red Blood Count 4.08 M/UL (4.70-6.10) Hemoglobin 12.2 G/DL (14.2-18.0) Hematocrit 36.8 % (42.0-52.0) Mean Corpuscular Volume 90 FL (80-99) Mean Corpuscular Hemoglobin 29.8 PG (27.0-31.0) Mean Corpuscular Hemoglobin Concent 33.1 G/DL (32.0-36.0) Red Cell Distribution Width 11.2 % (11.6-14.8) Platelet Count 348 K/UL (150-450) Mean Platelet Volume 5.2 FL (6.5-10.1) Neutrophils (%) (Auto) 62.0 % (45.0-75.0) Lymphocytes (%) (Auto) 30.5 % (20.0-45.0) Monocytes (%) (Auto) 6.6 % (1.0-10.0) Eosinophils (%) (Auto) 0.7 % (0.0-3.0) Basophils (%) (Auto) 0.2 % (0.0-2.0) A: 1) HIV infection, well controlled on Symtuza 2) Participation in [employer] clinical trial [id number] P: 1) continue to manage per protocol 2) anticipate d/c AM 08/28 if stable Jeff Valentin MD Aug 26, 2018 18:26
--- NOTE | 2018-08-26 19:30 | NUR ---
HAND-OFF: Report given to Pankaj HULL. Patient in stable condition.
--- NOTE | 2018-08-26 19:47 | NUR ---
NURSE NOTES: Patient in bed awake and oriented. IV site intact and flushing. No pain. No SOB. Needs attended. Call light within reach. Bed is locked and in low position. In stable condition.
--- NOTE | 2018-08-27 08:00 | NUR ---
NURSE NOTES: during shift change patient alert oriented with out no distress, call light with in reach, bed on low position locked, will continue to monitor.
[2018-08-27 08:22] LABS: BASOPHILS % (AUTO) 0.7 % (0.0-2.0); EOSINOPHILS % (AUTO) 1.4 % (0.0-3.0); HEMOGLOBIN 11.9 G/DL (14.2-18.0); LYMPHOCYTES % (AUTO) 44.6 % (20.0-45.0); MEAN CORPUSCULAR VOLUME 91 FL (80-99); MONOCYTES % (AUTO) 8.3 % (1.0-10.0); NEUTROPHILS % (AUTO) 45.1 % (45.0-75.0); PLATELET COUNT 309 K/UL (150-450); RED BLOOD COUNT 3.94 M/UL (4.70-6.10); RED CELL DISTRIBUTION WIDTH 11.7 % (11.6-14.8); WHITE BLOOD COUNT 5.6 K/UL (4.8-10.8)
[2018-08-27] MEDS: SYMTUZA ORAL SCH (08:55)
--- NOTE | 2018-08-27 16:36 | General Progress Note ---
Progress Note Progress Note S: Pt doing well, no new complaints today. O: VSS Afebrile HEENT: nc/at Lungs: clear Cor: reg Abd: soft, NT Ext: no c/c/e Skin: no rashes Labs Test 08/25/18 15:50 08/27/18 07:55 White Blood Count 5.2 K/UL (4.8-10.8) 5.6 K/UL (4.8-10.8) Red Blood Count 4.08 M/UL (4.70-6.10) 3.94 M/UL (4.70-6.10) Hemoglobin 12.2 G/DL (14.2-18.0) 11.9 G/DL (14.2-18.0) Hematocrit 36.8 % (42.0-52.0) 36.0 % (42.0-52.0) Mean Corpuscular Volume 90 FL (80-99) 91 FL (80-99) Mean Corpuscular Hemoglobin 29.8 PG (27.0-31.0) 30.1 PG (27.0-31.0) Mean Corpuscular Hemoglobin Concent 33.1 G/DL (32.0-36.0) 33.0 G/DL (32.0-36.0) Red Cell Distribution Width 11.2 % (11.6-14.8) 11.7 % (11.6-14.8) Platelet Count 348 K/UL (150-450) 309 K/UL (150-450) Mean Platelet Volume 5.2 FL (6.5-10.1) 5.6 FL (6.5-10.1) Neutrophils (%) (Auto) 62.0 % (45.0-75.0) 45.1 % (45.0-75.0) Lymphocytes (%) (Auto) 30.5 % (20.0-45.0) 44.6 % (20.0-45.0) Monocytes (%) (Auto) 6.6 % (1.0-10.0) 8.3 % (1.0-10.0) Eosinophils (%) (Auto) 0.7 % (0.0-3.0) 1.4 % (0.0-3.0) Basophils (%) (Auto) 0.2 % (0.0-2.0) 0.7 % (0.0-2.0) A: 1) Well controlled HIV infection 2) participation in [id number] P: 1) Continue to manage per protocol 2) Anticipate discharge tomorrow morning with follow up in the office next week. Jeff Valentin MD Aug 27, 2018 16:36
--- NOTE | 2018-08-27 19:22 | NUR ---
HAND-OFF: Report given to DELLA Bennett patient stable condition.
--- NOTE | 2018-08-27 19:30 | NUR ---
NURSE NOTES: Receive a report from DELLA Allison. Done rounds. Pt is awake and alert. No acute distress noted. Will continue to monitor.
[2018-08-27] MEDS ORDERED: Patient's Own Med ORAL (21:18)
--- NOTE | 2018-08-28 07:30 | NUR ---
HAND-OFF: Report given to DELLA Munoz. Pt is going to discharge today.
--- NOTE | 2018-08-28 07:30 | NUR ---
NURSE NOTES: Patient is in bed awake and able to verbalize needs. Stable. Denies pain or SOB. Patient encouraged to use call light for assistance, verbalized understanding. Patient in bed in locked position with call light within reach. Will continue to monitor.
[2018-08-28 08:20] LABS: BASOPHILS % (AUTO) 0.5 % (0.0-2.0); EOSINOPHILS % (AUTO) 1.9 % (0.0-3.0); HEMATOCRIT 37.2 % (42.0-52.0); HEMOGLOBIN 12.2 G/DL (14.2-18.0); LYMPHOCYTES % (AUTO) 45.7 % (20.0-45.0); MEAN CORPUSCULAR VOLUME 92 FL (80-99); MONOCYTES % (AUTO) 7.5 % (1.0-10.0); NEUTROPHILS % (AUTO) 44.4 % (45.0-75.0); PLATELET COUNT 323 K/UL (150-450); RED BLOOD COUNT 4.05 M/UL (4.70-6.10); RED CELL DISTRIBUTION WIDTH 11.8 % (11.6-14.8); WHITE BLOOD COUNT 5.5 K/UL (4.8-10.8)
--- NOTE | 2018-08-28 08:45 | NUR ---
NURSE NOTES: Patient discharged home as ordered. Stable. Denies pain or SOB. Patient was part of clinical trial, discharge instructions given to patient by Dr. Valentin, reinforced by Dr. Valentin's nurse and RN, patient verbalized understanding. Patient has all belongings. Patient has all medication. Skin is clean, dry, and intact. Patient assisted outside by RN without incident.
--- NOTE | 2018-08-28 09:15 | Discharge Summary ---
DATE OF ADMISSION: 08/25/2018 DATE OF DISCHARGE: 08/28/2018 DISCHARGE DIAGNOSES: 1. Participation in [employer] clinical trial [id number]. 2. Human immunodeficiency virus infection, well controlled. HISTORY OF PRESENT ILLNESS AND HOSPITAL COURSE: The patient is a 23-year-old man followed in our practice for human immunodeficiency virus infection, which is well controlled on Symtuza. He was electively admitted on 08/25/2018 for the fifth of a planned 5 biweekly infusions of investigational product per the above protocol. He tolerated the infusion on the second hospital day well with no adverse events noted. His laboratory parameters were stable. The patient was discharged to home in good condition with follow-up in the office next week. DISCHARGE MEDICATIONS: Include Symtuza 1 tablet once a day. Jeff Valentin M.D. DR: LIAM JOB#: [id number] CC: Jeff Valentin M.D.; [address] [place] [address]; [address]; [place] [address]; Fax#: [phone]
--- NOTE | 2018-08-28 09:31 | NUR ---
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
== END 2018-08-28 09:40 | disposition home or self-care (01) | DRG 951 ==
LOC: 3E 15:40
DX: Z00.6 Encounter for examination for normal comparison and control in clinical research program (principal); B20 Human immunodeficiency virus [HIV] disease; D64.9 Anemia, unspecified
CPT/HCPCS: 36415; 85025